=== PATIENT | female | born 1965 | race Caucasian/White ===

== ENCOUNTER → 2017-01-02 | Outpatient (CLI) | payer SELFPAY ==
[2017-01-02 08:12] LABS: BASOPHILS # (AUTO) 0.11 10*3/UL; BASOPHILS % (AUTO) 1.3 % (0-1); EOSINOPHILS % (AUTO) 5.3 % (0-8); HEMATOCRIT 43.5 % (37.0-47.0); HEMOGLOBIN 15.2 g/dL (12.0-16.0); IMM GRAN % (AUTO) 0.4 % (0-5); IMM GRAN# (AUTO) 0.03 10*3/UL; LYMPHOCYTES # (AUTO) 2.39 10*3/uL; LYMPHOCYTES % (AUTO) 28.9 % (10-50); MEAN CORPUSCULAR HEMOGLOBIN 29.6 PG (27-31); MEAN CORPUSCULAR HGB CONC 34.9 g/dL (33-37); NEUTROPHILS % (AUTO) 58.1 % (50-80); RDW COEFFICIENT OF VARIATION 13.9 % (11.5-14.5); RED BLOOD COUNT 5.14 10^6/uL (4.20-5.40); WHITE BLOOD COUNT 8.27 10^3/uL (4.8-10.8)
[2017-01-02 08:18] LABS: PLATELET MORPHOLOGY COMMENT NORMAL MORPHOLOGY (NORM)
[2017-01-02 08:27] LABS: ASPARTATE AMINO TRANSFERASE 25 IU/L (8-39); BLOOD UREA NITROGEN 13 mg/dL (7-22); BUN/CREATININE RATIO 18.57 (6-20); CALCIUM 9.3 mg/dL (8.7-10.7); CHLORIDE 105 meq/L (98-112); CREATININE 0.7 mg/dL (0.50-1.20); EST GLOMERULAR FILTRATION > 60 (>60 ml/min/1.73m(2)); GLUCOSE 97 mg/dL (78-110); POTASSIUM 3.5 meq/L (3.8-5.2); SODIUM 143 meq/L (135-145); TOTAL PROTEIN 7.1 g/dL (6.1-8.0)
--- NOTE | 2017-01-02 11:29 | DI ---
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 Previous Exam: 05/14/2016. Scans are performed from the lower lung bases through the liver and kidneys with IV contrast. 95 ml o f Isovue 300 was injected IV. The patient did attempt to drink oral contrast but this was not success ful. The lung bases are clear. The liver is normal. The patient is status post cholecystectomy. There is n o abnormality of the spleen, pancreas, and adrenal glands. There is a large vascular channel along th e area of the left gutter and this communicates with branches of the inferior mesenteric vein and pro bably represents a varix. Both kidneys are normal in size, shape, position and contour. There is no h ydronephrosis or hydroureter. No renal or ureteral calculi are present. There are no abnormal retrocr ural or periaortic nodes. No ascites is present. READING: Normal CT abdomen scan. There may be a varix in the region of the left gutter. CT PELVIS SCAN WITH IV CONTRAST, 01/02/2017 8:00 AM: Clinical History: See above. Previous Exam: 05/14/2016. Scans are performed from just superior to the umbilicus to the symphysis pubis with IV contrast. This is the same bolus of contrast used for the CT scans of the abdomen. Scans through the lower abdomen and pelvis show no masses or abnormal fluid collections. There is no adenopathy. The patient is status post right colectomy with an end-to-end anastomosis. The anastomosi s appears patent and there is no evidence of a tumor mass at the site of the anastomosis. The remaini ng small bowel and colon are normal. There are no hernias. The patient is status post hysterectomy an d bilateral salpingo-oophorectomy. READING: Status post right hemicolectomy without evidence of tumor at the site of the anastomosis. The exam is otherwise normal.
== END ==
LOC: CT 07:50
PROVIDERS: ATTEND Internal Medicine
DX: C80.1 Malignant (primary) neoplasm, unspecified (principal); Z98.890 Other specified postprocedural states
CPT/HCPCS: 36415; 74177; 80053; 85025